=== PATIENT | male | born 1950 | race Caucasian/White ===

== ENCOUNTER 2019-04-12 06:49 | Emergency (ER) | payer OTHER ==
[~2019-04-12] VITALS: Ht 182.9 cm; Wt 104.3 kg
[2019-04-12] MEDS ORDERED: NORVASC5 MG PO (07:12)
[2019-04-12] MEDS ORDERED: CARVEDILOL6.25 MG PO (07:12)
[2019-04-12] MEDS ORDERED: XARELTO20 MG PO (07:12)
== END 2019-04-12 12:03 | disposition home or self-care (01) ==
LOC: ER 06:49
DX: B34.9 Viral infection, unspecified (principal); H10.89 Other conjunctivitis; J11.1 Influenza due to unidentified influenza virus with other respiratory manifestations